=== PATIENT | female | born 1990 | race American Indian/Alaskan Native ===

== ENCOUNTER 2021-06-14 16:47 | Emergency (ER) | payer OTHER, MEDICAID ==
[2021-06-14 17:00] VITALS: BP 134/81
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
== END 2021-06-14 18:27 | disposition home or self-care (01) ==
LOC: ED 16:47
DX: M54.50 Low back pain, unspecified (principal); M25.511 Pain in right shoulder; M54.6 Pain in thoracic spine; V49.9XXA Car occupant (driver) (passenger) injured in unspecified traffic accident, initial encounter; Y93.89 Activity, other specified; Y92.89 Other specified places as the place of occurrence of the external cause; Y99.8 Other external cause status
CPT/HCPCS: 99281